=== PATIENT | female | born 1980 | race Caucasian/White ===

== ENCOUNTER 2017-06-13 16:07 | Outpatient (CLI) | payer OTHER ==
[2017-06-13 16:20] LABS: BASOPHILS % 0.3 (0.0-1.5); EOSINOPHILS % 1.5 % (0.0-6.8); MEAN CORPUSCULAR HEMOGLOBIN 28.8 pg (28.0-34.0); MEAN CORPUSCULAR VOLUME 88.8 fl (80.0-100.0); MONOCYTES % 4.9 % (0.0-11.0)
== END 2017-06-13 16:10 ==
LOC: LAB 16:07
PROVIDERS: ATTEND Physician Assistant
DX: R59.1 Generalized enlarged lymph nodes (principal)
CPT/HCPCS: 85025; 86308